=== PATIENT | female | born 1960 | race Caucasian/White ===

== ENCOUNTER 2017-05-07 18:20 | Inpatient (IN) | payer MEDICARE ==
[2017-05-07 19:35] LABS: Bilirubin Negative (Negative); Blood, Urine Negative (Negative); Clarity CLEAR (Clear); Glucose, Urine (Dipstick) >=1000 mg/dL (Negative); Leukocyte Negative (Negative); Nitrite Negative (Negative); Protein, Urine (Dipstick) Negative (Neg-Trace); Specific Gravity, Urine 1.036 (1.002-1.036); Urobilinogen 0.2 mg/dL (0.2-1.0)
[2017-05-07 19:42] LABS: Bicarbonate (HCO3v) 18.7 mmol/L (1.0-85.0); CO2 Tension (PvCO2) 37.8 mmHg (41.0-51.0); Calcium, Ionized 1.08 mmol/L (1.12-1.32); Hemoglobin - Calc 16.7 g/dL (12.0-18.0); O2 Tension (PvO2) 32.9 mmHg (35.0-45.0); T. Carbon Dioxide 19.9 mmol/L (1.0-85.0); pH (Venous) 7.302 (7.35-7.45); vO2 Saturation-calc 57.6 % (0.0-100.0)
--- NOTE | 2017-05-07 19:47 | RAD ---
PORTABLE UPRIGHT FRONTAL CHEST RADIOGRAPH 05/07/17 COMPARISON: 12/27/14 HISTORY: Increased dizziness, altered mental status. FINDINGS: Clips are noted in the right upper quadrant. There is no pneumothorax, pleural fluid, focal consolida tion, or alveolar edema. IMPRESSION: No acute findings. POS: [facility]
[2017-05-07 19:52] LABS: Hemoglobin 15.3 g/dL (12.0-16.0); Mean Corpuscular HGB CONC 33.3 g/dL (32.0-36.0); Mean Corpuscular Hemoglobin 34.7 pg (27.0-31.0); Platelet Count 262 thou/uL (130-400); RBC Distribution Width 12.1 % (11.5-14.5); White Blood Cell (WBC) Count 5.9 thou/uL (4.8-10.8)
[2017-05-07 19:54] LABS: #Lymphocytes 1.6 thou/uL (1.20-3.40); #Monocytes 0.4 thou/uL (0.11-0.59); #Neutrophils 3.6 thou/uL (1.40-6.50); %Basophils 0.7 % (0.0-1.0); %Eosinophils 0.5 % (0.0-10.0); %Lymphocytes 28.2 % (21.0-51.0); %Monocytes 7.1 % (0.0-10.0); %Neutrophils 63.5 % (42.0-75.0)
[2017-05-07 20:00] LABS: ALT (SGPT) 72 U/L (8-55); AST (SGOT) 46 U/L (5-34); Albumin 4.5 g/dL (3.5-5.0); Alkaline Phosphatase 166 U/L (40-150); Anion Gap 20 mmol/L (10-20); BUN (Urea Nitrogen) 14 mg/dL (9.8-20.1); Bilirubin, Total 0.3 mg/dL (0.2-1.2); CK (CPK) 31 U/L (29-168); Calc. Creatinine Clearance 0 mL/min (70-130); Calcium 9.5 mg/dL (7.8-10.44); Carbon Dioxide 17 mmol/L (22-29); Chloride 97 mmol/L (98-107); Estimated GFR-MDRD 46; Globulin 3.2 g/dL (2.4-3.5); Magnesium 2.1 mg/dL (1.6-2.6); Protein, Total 7.7 g/dL (6.0-8.3); Sodium 130 mmol/L (136-145)
[2017-05-07 20:04] LABS: Glucose 557 mg/dL (70-105)
[2017-05-07 20:05] LABS: CKMB 1.5 ng/mL (0-6.6); Troponin I Less than 0.010 ng/mL (< 0.028)
[2017-05-07] MEDS ORDERED: Meclizine HCl 25 MG TAB ONE (20:22)
--- NOTE | 2017-05-07 20:28 | CT ---
HEAD CT WITHOUT CONTRAST 05/07/17 COMPARISON: 01/14/17 HISTORY: Altered mental status. TECHNIQUE: Serial axial CT imaging at 5 mm intervals from vertex through skull base without contrast. FINDINGS: Imaged paranasal sinuses/mastoid air cells are well aerated. There is no displaced calvarial fracture . There is distal right vertebral artery atherosclerotic calcification. There is no intracranial hemo rrhage, midline shift, mass effect or ventricular enlargement. IMPRESSION: No intracranial hemorrhage. POS: [facility]
[2017-05-07] MEDS ORDERED: Insulin Regular 300 UNITS/3 ML VIAL ONE ×2 (20:56→21:20)
[2017-05-07] MEDS ORDERED: Insulin Regular 100 units/100 ml in NS IVPB SCH (21:15)
[2017-05-07 23:29] VITALS: BMI 24.8
[2017-05-08 00:01] LABS: Anion Gap 9 mmol/L (10-20); BUN (Urea Nitrogen) 11 mg/dL (9.8-20.1); Calc. Creatinine Clearance 70 mL/min (70-130); Calcium 8.3 mg/dL (7.8-10.44); Carbon Dioxide 24 mmol/L (22-29); Chloride 104 mmol/L (98-107); Estimated GFR-MDRD 71; Glucose 393 mg/dL (70-105); Potassium 3.4 mmol/L (3.5-5.1); Sodium 134 mmol/L (136-145)
[2017-05-08] MEDS ORDERED: NS 0.9% w/ 20 MEQ KCL 1,000 ML IV PRN ×2 (00:01)
[2017-05-08] MEDS ORDERED: hydrALAZINE 20 MG/ML VIAL SLOW IVP PRN (00:01)
[2017-05-08] MEDS ORDERED: Acetaminophen 325 MG TAB PO PRN (00:01)
[2017-05-08] MEDS ORDERED: Dextrose 5 %-0.45 % NaCl 1,000 ML IV PRN (00:01)
[2017-05-08] MEDS ORDERED: D5 1/2 NS w/20 mEq KCL 1,000 ML IV PRN (00:01)
[2017-05-08] MEDS ORDERED: CCU Electrolyte Replacement 1 EACH IVPB SCH (00:01)
[2017-05-08] MEDS ORDERED: Sodium Chloride 0.9% 1,000 ML IV PRN ×4 (00:01)
[2017-05-08] MEDS ORDERED: Mag-Al 1200 mg/1200 mg/30 ML UDCUP PO PRN (00:01)
[2017-05-08] MEDS ORDERED: Magnesium Oxide 400 MG TAB PO PRN ×2 (00:13)
[2017-05-08] MEDS ORDERED: CCU ELECTROLYTE REPLACEMENT PROTOCOL FS PRN (00:13)
[2017-05-08] MEDS ORDERED: Potassium Phosphate 12 MMOL in Sodium Chloride 0.9% 250 ML 250 ML IV PRN (00:13)
[2017-05-08] MEDS ORDERED: Potassium Phosphate 9 MMOL in Sodium Chloride 0.9% 100 ML IVPB PRN (00:13)
[2017-05-08] MEDS ORDERED: Potassium Chloride 20 MEQ TAB PO PRN (00:13)
[2017-05-08] MEDS ORDERED: Potassium Chloride 40 MEQ in Sodium Chloride 0.9% 250 ML 250 ML IVPB PRN (00:13)
[2017-05-08] MEDS ORDERED: Magnesium 2 GM/NS 0.9% 100 ML 2 GM in Premix Bag 1 BAG IVPB PRN (00:13)
[2017-05-08] MEDS ORDERED: Potassium Chloride 40 MEQ in Premix Bag 1 BAG IVPB PRN (00:13)
[2017-05-08] MEDS ORDERED: Potassium Phosphate 15 MMOL in Sodium Chloride 0.9% 250 ML 250 ML IV PRN (00:13)
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
[2017-05-08] MEDS ORDERED: ALPRAZolam 0.5 MG TAB PO SCH (01:00)
[2017-05-08] MEDS ORDERED: Zolpidem Tartrate 5 MG TAB PO SCH (01:00)
[2017-05-08 01:06] LABS: Anion Gap 7 mmol/L (10-20); BUN (Urea Nitrogen) 10 mg/dL (9.8-20.1); Calc. Creatinine Clearance 76 mL/min (70-130); Calcium 8.2 mg/dL (7.8-10.44); Carbon Dioxide 26 mmol/L (22-29); Chloride 105 mmol/L (98-107); Estimated GFR-MDRD 77; Glucose 330 mg/dL (70-105); Potassium 3.2 mmol/L (3.5-5.1); Sodium 135 mmol/L (136-145)
[2017-05-08] MEDS ORDERED: Fiorinal 325/50/40 mg Tablet PO PRN (01:59)
[2017-05-08 04:51] LABS: Free T4 (Free Thyroxine) 0.94 ng/dL (0.70-1.48); Thyroid Stimulating Hormone 1.8288 uIU/mL (0.35-4.94)
[2017-05-08 05:04] LABS: Anion Gap 7 mmol/L (10-20); BUN (Urea Nitrogen) 11 mg/dL (9.8-20.1); Calc. Creatinine Clearance 89 mL/min (70-130); Calcium 8.1 mg/dL (7.8-10.44); Carbon Dioxide 24 mmol/L (22-29); Chloride 109 mmol/L (98-107); Estimated GFR-MDRD Greater than 90; Glucose 176 mg/dL (70-105); Potassium 3.2 mmol/L (3.5-5.1); Sodium 137 mmol/L (136-145)
[2017-05-08] MEDS: Levothyroxine Sodium 100 MCG TAB PO SCH (05:37)
[2017-05-08] MEDS: ALPRAZolam 0.5 MG TAB PO SCH ×3 (08:28→23:03)
[2017-05-08] MEDS: Aspirin 81 mg Enteric Coated Tablet PO SCH (08:29)
[2017-05-08] MEDS: Gabapentin 300 MG CAP PO SCH ×3 (08:29→21:46)
[2017-05-08] MEDS: busPIRone HCl 5 MG TAB PO SCH ×2 (08:29→21:47)
[2017-05-08] MEDS: lamoTRIgine 100 MG TAB PO SCH (08:29)
[2017-05-08] MEDS: Enoxaparin Sodium 30 MG/0.3 ML SYRINGE SC SCH (08:30)
[2017-05-08] MEDS: Atorvastatin Calcium 40 MG TAB PO SCH (08:30)
[2017-05-08] MEDS: Famotidine 20 MG TAB PO SCH ×2 (08:30→21:47)
[2017-05-08] MEDS: DULoxetine 60 MG CAP PO SCH (08:30)
[2017-05-08 09:05] LABS: Anion Gap 7 mmol/L (10-20); BUN (Urea Nitrogen) 10 mg/dL (9.8-20.1); Calc. Creatinine Clearance 106 mL/min (70-130); Calcium 8.2 mg/dL (7.8-10.44); Carbon Dioxide 24 mmol/L (22-29); Chloride 109 mmol/L (98-107); Estimated GFR-MDRD Greater than 90; Glucose 118 mg/dL (70-105); Potassium 3.6 mmol/L (3.5-5.1); Sodium 136 mmol/L (136-145)
[2017-05-08] MEDS ORDERED: Ketorolac Tromethamine 30 MG/ML VIAL IVP SCH (09:30)
--- NOTE | 2017-05-08 13:52 | PDOC.PN ---
- Subjective Encounter Start Date: 05/08/17 Encounter Start Time: 13:40 Subjective: f/u for DKA on protocol and insulin gtt. Gap has closed and pt tolerating -: po intake. Pt unreliable historian due to TBI with long/short-term memory -: loss. c/o RUIZ tx with Toradol. - Objective Resuscitation Status: Resuscitation Status FULL:Full Resuscitation MAR Reviewed: Yes Vital Signs & Weight: Vital Signs (12 hours) Temp Pulse Resp BP Pulse Ox 05/08/17 12:00 97.2 F L 79 15 114/74 97 05/08/17 08:00 97.8 F 87 16 98 05/08/17 07:25 97.8 F 87 16 101/64 99 05/08/17 04:00 97.6 F 78 18 86/57 L 97 05/08/17 03:55 72 18 112/62 92 L I&O: 05/07/17 05/08/17 05/09/17 06:59 06:59 06:59 Intake Total 3440 Output Total 800 Balance 2640 Result Diagrams: 05/07/17 19:37 05/08/17 07:45 Additional Labs: Accuchecks 05/08/17 05/08/17 05/08/17 11:35 10:05 09:13 POC Glucose 187 H 191 H 191 H 05/08/17 05/08/17 05/08/17 08:13 07:00 06:09 POC Glucose 139 H 133 H 160 H 05/08/17 05/08/17 05/08/17 05:14 04:09 03:22 POC Glucose 156 H 154 H 175 H 05/08/17 05/08/17 05/08/17 02:23 01:09 00:14 POC Glucose 176 H 284 H 315 H 05/07/17 05/07/17 23:12 22:25 POC Glucose 411 H 371 H Laboratory Tests 04/02/16 04/10/16 04/10/16 10:10 06:22 14:16 Sodium Hemoglobin A1c 14.6 H Phosphorus Magnesium Free T4 TSH 3rd Generation Urine Ketones B-Hydroxybutyrate 2.72 H 0.40 H 04/11/16 04/11/16 05/07/17 02:04 05:33 19:37 Sodium 130 L Hemoglobin A1c Phosphorus Magnesium 2.1 Free T4 TSH 3rd Generation Urine Ketones Negative B-Hydroxybutyrate 0.18 05/07/17 05/07/17 05/08/17 19:37 23:28 00:21 Sodium 134 L 135 L Hemoglobin A1c Phosphorus Magnesium Free T4 TSH 3rd Generation Urine Ketones B-Hydroxybutyrate 4.09 H 05/08/17 05/08/17 03:20 03:20 Sodium Hemoglobin A1c Phosphorus 1.6 L Magnesium Free T4 0.94 TSH 3rd Generation 1.8288 Urine Ketones B-Hydroxybutyrate Radiology Reviewed by me: Yes (PCXR - neg; CT Brain - neg) EKG Reviewed by me: Yes (Tele - SR) Phys Exam - Physical Examination Constitutional: NAD HEENT: PERRLA, oral pharynx no lesions Neck: no JVD, supple Respiratory: no wheezing, clear to auscultation bilateral Cardiovascular: RRR Gastrointestinal: soft, non-tender, no distention, positive bowel sounds Musculoskeletal: no edema, pulses present Neurological: normal sensation, moves all 4 limbs Skin: normal turgor, cap refill <2 seconds Dx/Plan (1) DKA (diabetic ketoacidoses) Code(s): E13.10 - OTH DIABETES MELLITUS WITH KETOACIDOSIS WITHOUT COMA Status : Resolved Comment: Resolving, saline lock IVF, start Levemir 15u sc BID, ISS (2) Dehydration Code(s): E86.0 - DEHYDRATION Status: Acute Comment: Resolving (3) Hyponatremia Code(s): E87.1 - HYPO-OSMOLALITY AND HYPONATREMIA Status: Acute Comment: Secondary to hyperglycemia (4) Hypophosphatemia Code(s): E83.39 - OTHER DISORDERS OF PHOSPHORUS METABOLISM Status: Acute Comment: Mild, KPhos TID (5) Bipolar disorder Code(s): F31.9 - BIPOLAR DISORDER, UNSPECIFIED Status: Chronic Comment: Continue Lamictal and Buspar (6) Diabetes type 2, uncontrolled Code(s): E11.65 - TYPE 2 DIABETES MELLITUS WITH HYPERGLYCEMIA Status: Chronic Comment: A1c 16.6 on 12/30, start Levemir 15u sc BID, ISS - Plan pediatric social worker, speech therapy, out of bed/ambulate, DVT proph w/SCDs Stable currently -: D/C Insulin gtt -: Toradol 30mg IV q6h -: PT for functional assessment -: AM lab: BMP, PO3 * .
[2017-05-08] MEDS: Ketorolac Tromethamine 30 MG/ML VIAL IVP SCH ×2 (15:02→21:45)
[2017-05-08] MEDS ORDERED: Dextrose 5% in Water 1,000 ML IV PRN ×2 (17:49→21:21)
[2017-05-08] MEDS ORDERED: Dextrose 50% Abboject 50 ML SYRINGE IVP PRN (17:49)
[2017-05-08] MEDS ORDERED: Insulin Detemir 100 UNITS/ML 15 UNITS in Pre-Filled Syringe 1 EACH SC SCH (18:00)
[2017-05-08] MEDS: K-Phos Neutral 250 MG TAB PO SCH (18:43)
[2017-05-08] MEDS: Insulin Regular 300 UNITS/3 ML VIAL SC PRN ×2 (18:44→21:44)
[2017-05-08] MEDS: Amitriptyline HCl 25 MG TAB PO SCH (21:47)
[2017-05-08] MEDS: Zolpidem Tartrate 5 MG TAB PO SCH (23:03)
[2017-05-09] MEDS: Insulin Regular 300 UNITS/3 ML VIAL SC PRN ×5 (03:10→20:43)
[2017-05-09 04:32] LABS: Hemoglobin A1c 15.2 % (4.0-6.0)
[2017-05-09 04:36] LABS: Anion Gap 8 mmol/L (10-20); BUN (Urea Nitrogen) 13 mg/dL (9.8-20.1); Calc. Creatinine Clearance 85 mL/min (70-130); Calcium 8.6 mg/dL (7.8-10.44); Carbon Dioxide 25 mmol/L (22-29); Chloride 107 mmol/L (98-107); Estimated GFR-MDRD 88; Glucose 352 mg/dL (70-105); Phosphorus 3.6 mg/dL (2.3-4.7); Potassium 3.8 mmol/L (3.5-5.1); Sodium 136 mmol/L (136-145)
[2017-05-09] MEDS: Ketorolac Tromethamine 30 MG/ML VIAL IVP SCH ×4 (07:17→20:55)
[2017-05-09] MEDS: Levothyroxine Sodium 100 MCG TAB PO SCH (07:18)
[2017-05-09] MEDS: K-Phos Neutral 250 MG TAB PO SCH ×2 (08:25→11:48)
[2017-05-09] MEDS: Famotidine 20 MG TAB PO SCH ×2 (08:25→20:42)
[2017-05-09] MEDS: Aspirin 81 mg Enteric Coated Tablet PO SCH (08:26)
[2017-05-09] MEDS: lamoTRIgine 100 MG TAB PO SCH (08:26)
[2017-05-09] MEDS: Atorvastatin Calcium 40 MG TAB PO SCH (08:26)
[2017-05-09] MEDS: Gabapentin 300 MG CAP PO SCH ×3 (08:26→20:42)
[2017-05-09] MEDS: DULoxetine 60 MG CAP PO SCH (08:26)
[2017-05-09] MEDS: busPIRone HCl 5 MG TAB PO SCH ×2 (08:26→20:42)
[2017-05-09] MEDS: Enoxaparin Sodium 30 MG/0.3 ML SYRINGE SC SCH (08:27)
[2017-05-09] MEDS: ALPRAZolam 0.5 MG TAB PO SCH ×3 (08:28→20:59)
[2017-05-09] MEDS ORDERED: Insulin Detemir 100 UNITS/ML 15 UNITS in Pre-Filled Syringe 1 EACH SC SCH (09:00)
--- NOTE | 2017-05-09 16:40 | PDOC.PN ---
- Subjective Encounter Start Date: 05/09/17 Encounter Start Time: 16:30 Subjective: f/u DKA currently resolved. Tolerating po intake. RUIZ improved. Still -: has significant memory loss secondary to hx of TBI. - Objective Resuscitation Status: Resuscitation Status FULL:Full Resuscitation MAR Reviewed: Yes Vital Signs & Weight: Vital Signs (12 hours) Temp Pulse Resp BP Pulse Ox 05/09/17 15:15 99.6 F 94 22 H 121/61 94 L 05/09/17 11:16 98.0 F 72 18 115/62 98 05/09/17 08:00 97.8 F 78 9 L 97 05/09/17 07:13 97.8 F 78 9 L 90/66 95 Weight Weight 136 lb 11.2 oz I&O: 05/08/17 05/09/17 05/10/17 06:59 06:59 06:59 Intake Total 3440 1010 Output Total 800 400 700 Balance 2640 610 -700 Result Diagrams: 05/07/17 19:37 05/09/17 03:46 Additional Labs: Accuchecks 05/09/17 05/09/17 05/09/17 16:23 10:33 06:12 POC Glucose 231 H 298 H 206 H 05/09/17 05/08/17 05/08/17 03:07 21:14 19:46 POC Glucose 323 H 424 H 461 H 05/08/17 16:36 POC Glucose 321 H Laboratory Tests 05/03/15 04/02/16 04/10/16 10:56 10:10 06:22 Sodium Hemoglobin A1c 13.7 H 14.6 H Phosphorus Magnesium Free T4 TSH 3rd Generation Urine Ketones B-Hydroxybutyrate 2.72 H 04/10/16 04/11/16 04/11/16 14:16 02:04 05:33 Sodium Hemoglobin A1c Phosphorus Magnesium Free T4 TSH 3rd Generation Urine Ketones Negative B-Hydroxybutyrate 0.40 H 0.18 01/09/17 05/07/17 05/07/17 09:13 19:37 19:37 Sodium 130 L Hemoglobin A1c 16.6 H Phosphorus Magnesium 2.1 Free T4 TSH 3rd Generation Urine Ketones B-Hydroxybutyrate 4.09 H 05/07/17 05/08/17 05/08/17 23:28 00:21 03:20 Sodium 134 L 135 L Hemoglobin A1c Phosphorus 1.6 L Magnesium Free T4 TSH 3rd Generation Urine Ketones B-Hydroxybutyrate 05/08/17 05/09/17 05/09/17 03:20 03:46 03:46 Sodium Hemoglobin A1c 15.2 H Phosphorus 3.6 Magnesium Free T4 0.94 TSH 3rd Generation 1.8288 Urine Ketones B-Hydroxybutyrate EKG Reviewed by me: Yes (Tele - SR) Phys Exam - Physical Examination Constitutional: NAD HEENT: PERRLA, oral pharynx no lesions Neck: no JVD, supple Respiratory: no wheezing, clear to auscultation bilateral Cardiovascular: RRR Gastrointestinal: soft, non-tender, no distention, positive bowel sounds Musculoskeletal: no edema, pulses present Neurological: normal sensation, moves all 4 limbs Skin: normal turgor, cap refill <2 seconds Dx/Plan (1) DKA (diabetic ketoacidoses) Code(s): E13.10 - OT DIABETES MELLITUS WITH KETOACIDOSIS WITHOUT COMA Status : Acute Comment: Resolving, saline lock IVF, change Levemir 20u sc BID, ISS (2) Dehydration Code(s): E86.0 - DEHYDRATION Status: Acute Comment: Resolving (3) Hyponatremia Code(s): E87.1 - HYPO-OSMOLALITY AND HYPONATREMIA Status: Acute Comment: Secondary to hyperglycemia (4) Hypophosphatemia Code(s): E83.39 - OTHER DISORDERS OF PHOSPHORUS METABOLISM Status: Acute Comment: Resolving, d/c KPhos (5) Bipolar disorder Code(s): F31.9 - BIPOLAR DISORDER, UNSPECIFIED Status: Chronic Comment: Continue Lamictal and Buspar (6) Diabetes type 2, uncontrolled Code(s): E11.65 - TYPE 2 DIABETES MELLITUS WITH HYPERGLYCEMIA Status: Chronic Comment: A1c 16.6 on 12/30, start Levemir 15u sc BID, ISS - Plan PT/OT, social media editor, out of bed/ambulate, DVT proph w/SCDs Stable overall -: Increase Levemir 20u sc BID -: Trial of Meclizine 25mg TID for vertigo -: CM consult for dispo planning, unsafe to be at home alone -: Transfer to Medical floor * .
[2017-05-09] MEDS ORDERED: Insulin Detemir 100 UNITS/ML 20 UNITS in Pre-Filled Syringe 1 EACH SC SCH (16:45)
--- NOTE | 2017-05-09 17:05 | EKG ---
Test Reason : DIZZINESS Blood Pressure : / mmHG Vent. Rate : 096 BPM Atrial Rate : 096 BPM P-R Int : 142 ms QRS Dur : 088 ms QT Int : 380 ms P-R-T Axes : 040 -45 030 degrees QTc Int : 480 ms Normal sinus rhythm Left axis deviation Inferior infarct , age undetermined Possible Anterolateral infarct , age undetermined Abnormal ECG Confirmed by SARITHA CELESTIN D.O. ([id number]), online content editor NAEL HANLEY ([id number]) on 05/09/2017 5:04:41 PM Referred By: LEVON Jeff Confirmed By:SARITHA CELESTIN D.O.
[2017-05-09] MEDS: Meclizine HCl 25 MG TAB PO SCH (18:02)
[2017-05-09] MEDS: Insulin Detemir 100 UNITS/ML 20 UNITS in Pre-Filled Syringe 1 EACH SC SCH (20:41)
[2017-05-09] MEDS: Amitriptyline HCl 25 MG TAB PO SCH (20:42)
[2017-05-09] MEDS: Zolpidem Tartrate 5 MG TAB PO SCH (23:12)
[2017-05-10] MEDS: ALPRAZolam 0.5 MG TAB PO SCH ×4 (00:07→20:16)
[2017-05-10] MEDS: Insulin Regular 300 UNITS/3 ML VIAL SC PRN ×5 (02:31→20:20)
[2017-05-10] MEDS: Meclizine HCl 25 MG TAB PO SCH ×3 (02:31→17:02)
[2017-05-10 05:21] LABS: Anion Gap 10 mmol/L (10-20); BUN (Urea Nitrogen) 12 mg/dL (9.8-20.1); Calc. Creatinine Clearance 91 mL/min (70-130); Carbon Dioxide 24 mmol/L (22-29); Chloride 108 mmol/L (98-107); Potassium 3.8 mmol/L (3.5-5.1); Sodium 138 mmol/L (136-145)
[2017-05-10 05:22] LABS: Calcium 8.6 mg/dL (7.8-10.44); Estimated GFR-MDRD Greater than 90; Glucose 219 mg/dL (70-105)
[2017-05-10] MEDS: Levothyroxine Sodium 100 MCG TAB PO SCH (05:47)
[2017-05-10] MEDS: Ketorolac Tromethamine 30 MG/ML VIAL IVP SCH ×4 (05:47→21:01)
[2017-05-10] MEDS: Aspirin 81 mg Enteric Coated Tablet PO SCH (08:31)
[2017-05-10] MEDS: Atorvastatin Calcium 40 MG TAB PO SCH (08:31)
[2017-05-10] MEDS: DULoxetine 60 MG CAP PO SCH (08:31)
[2017-05-10] MEDS: busPIRone HCl 5 MG TAB PO SCH ×2 (08:31→20:16)
[2017-05-10] MEDS: Famotidine 20 MG TAB PO SCH ×2 (08:31→20:15)
[2017-05-10] MEDS: Gabapentin 300 MG CAP PO SCH ×3 (08:31→20:14)
[2017-05-10] MEDS: lamoTRIgine 100 MG TAB PO SCH (08:32)
[2017-05-10] MEDS: Insulin Detemir 100 UNITS/ML 20 UNITS in Pre-Filled Syringe 1 EACH SC SCH (08:40)
[2017-05-10] MEDS ORDERED: Insulin Detemir 100 UNITS/ML 20 UNITS in Pre-Filled Syringe 1 EACH SC SCH (09:00)
--- NOTE | 2017-05-10 12:53 | PDOC.PN ---
- Subjective Encounter Start Date: 05/10/17 Encounter Start Time: 12:50 Subjective: f/u DM II and s/p DKA. Overall feeling better and appetite good. Ambulated -: with less dizziness. - Objective Resuscitation Status: Resuscitation Status FULL:Full Resuscitation MAR Reviewed: Yes Vital Signs & Weight: Vital Signs (12 hours) Temp Pulse Resp BP Pulse Ox 05/10/17 11:56 98.5 F 87 16 119/80 93 L 05/10/17 08:00 98.2 F 86 16 05/10/17 07:18 98.2 F 86 16 101/64 93 L 05/10/17 04:00 98.2 F 81 20 98/64 92 L Weight Weight 136 lb 11.2 oz I&O: 05/09/17 05/10/17 05/11/17 06:59 06:59 06:59 Intake Total 1010 1400 Output Total 400 700 Balance 610 700 Result Diagrams: 05/07/17 19:37 05/10/17 04:52 Additional Labs: Accuchecks 05/10/17 05/10/17 05/10/17 11:24 04:59 02:06 POC Glucose 224 H 182 H 290 H 05/09/17 05/09/17 20:36 16:23 POC Glucose 420 H 231 H Phys Exam - Physical Examination Constitutional: NAD HEENT: PERRLA, oral pharynx no lesions Neck: no JVD, supple Respiratory: no wheezing, clear to auscultation bilateral Cardiovascular: RRR Gastrointestinal: soft, non-tender, no distention, positive bowel sounds Musculoskeletal: no edema, pulses present Neurological: normal sensation, moves all 4 limbs Psychiatric: A&O x 3 Skin: normal turgor, cap refill <2 seconds Dx/Plan (1) DKA (diabetic ketoacidoses) Code(s): E13.10 - OTH DIABETES MELLITUS WITH KETOACIDOSIS WITHOUT COMA Status : Acute Comment: Resolving, saline lock IVF, change Levemir 25u sc BID, ISS (2) Dehydration Code(s): E86.0 - DEHYDRATION Status: Acute Comment: Resolving (3) Hyponatremia Code(s): E87.1 - HYPO-OSMOLALITY AND HYPONATREMIA Status: Acute Comment: Secondary to hyperglycemia (4) Hypophosphatemia Code(s): E83.39 - OTHER DISORDERS OF PHOSPHORUS METABOLISM Status: Acute Comment: Resolving, d/c hos (5) Bipolar disorder Code(s): F31.9 - BIPOLAR DISORDER, UNSPECIFIED Status: Chronic Comment: Continue Maximiliano and Gael (6) Diabetes type 2, uncontrolled Code(s): E11.65 - TYPE 2 DIABETES MELLITUS WITH HYPERGLYCEMIA Status: Chronic Comment: A1c 16.6 on 12/30, continue Levemir 25u sc BID, ISS, dietitian consult - Plan PT/OT, social contact worker, out of bed/ambulate, DVT proph w/SCDs Stable overall -: Change Levemir 25u sc BID -: Dietitian consult -: OOB/ambulate -: CM consult for dispo planning * ? Home health on d/c * Likely home 05/11/17
[2017-05-10 19:26] VITALS: BP 112/74
[2017-05-10] MEDS: Amitriptyline HCl 25 MG TAB PO SCH (20:16)
[2017-05-10] MEDS: Zolpidem Tartrate 5 MG TAB PO SCH (20:16)
[2017-05-10] MEDS: Insulin Detemir 100 UNITS/ML 25 UNITS in Pre-Filled Syringe 1 EACH SC SCH (20:48)
[2017-05-11] MEDS: Meclizine HCl 25 MG TAB PO SCH ×2 (02:09→09:31)
[2017-05-11] MEDS: Ketorolac Tromethamine 30 MG/ML VIAL IVP SCH ×3 (04:45→15:32)
[2017-05-11] MEDS: Levothyroxine Sodium 100 MCG TAB PO SCH (05:06)
[2017-05-11 05:30] LABS: Anion Gap 8 mmol/L (10-20); BUN (Urea Nitrogen) 11 mg/dL (9.8-20.1); Calc. Creatinine Clearance 89 mL/min (70-130); Calcium 8.8 mg/dL (7.8-10.44); Carbon Dioxide 29 mmol/L (22-29); Chloride 105 mmol/L (98-107); Estimated GFR-MDRD 89; Glucose 241 mg/dL (70-105); Potassium 4.3 mmol/L (3.5-5.1); Sodium 138 mmol/L (136-145)
[2017-05-11] MEDS: Insulin Regular 300 UNITS/3 ML VIAL SC PRN ×2 (06:01→11:13)
[2017-05-11] MEDS: Gabapentin 300 MG CAP PO SCH ×2 (09:30→15:03)
[2017-05-11] MEDS: DULoxetine 60 MG CAP PO SCH (09:30)
[2017-05-11] MEDS: ALPRAZolam 0.5 MG TAB PO SCH ×2 (09:31→15:02)
[2017-05-11] MEDS: busPIRone HCl 5 MG TAB PO SCH (09:31)
[2017-05-11] MEDS: Atorvastatin Calcium 40 MG TAB PO SCH (09:31)
[2017-05-11] MEDS: Aspirin 81 mg Enteric Coated Tablet PO SCH (09:31)
[2017-05-11] MEDS: lamoTRIgine 100 MG TAB PO SCH (09:31)
[2017-05-11] MEDS: Famotidine 20 MG TAB PO SCH (09:32)
[2017-05-11] MEDS: Insulin Detemir 100 UNITS/ML 25 UNITS in Pre-Filled Syringe 1 EACH SC SCH (09:38)
[2017-05-11 12:24] VITALS: TEMP 97.9
--- NOTE | 2017-05-11 12:50 | DIS ---
DATE OF ADMISSION: 05/07/2017 DATE OF DISCHARGE: 05/11/2017 DISCHARGE DIAGNOSES: 1. Diabetic ketoacidosis, resolved. 2. Dehydration secondary to #1, resolved. 3. Hyponatremia secondary to hyperglycemia, improved. 4. Hypophosphatasemia, resolved. 5. Diabetes mellitus, type 2, uncontrolled. 6. Status post traumatic brain injury with memory loss. 7. Obsessive compulsive disorder. 8. Tension headache, improved. CONSULTATIONS: None. PERTINENT LABORATORY AND X-RAY FINDINGS: Hemoglobin A1c of 15.2, TSH 1.83, free T4 0.94, AST 46, ALT 72, alkaline phosphatase 166. CBC within normal limits. Beta hydroxybutyrate level, 05/07/2017, 4. 09. Portable chest x-ray dated 05/07/2017 showed no acute cardiopulmonary process. CT of the brain without contrast dated 05/07/2017 showed no acute intracranial process. HOSPITAL COURSE: Patient was initially admitted to the critical care unit with diabetic ketoacidosis with dehydration and multiple metabolic derangements. The patient received intravenous normal salin e as well as DKA protocol on insulin infusion with overall improvement in glucose trend. Hemoglobin A1c showed essentially uncontrolled diabetes mellitus, type 2, with a level of 15.2. The patient was initiated on subcutaneous Levemir, titrated to current level of 25 units b.i.d. The patient was cierra luated by the dietitian service and given general education and reinforcement on dietary measures for home. The patient was also evaluated by the case management service with recommendations for home [facility] services for closer surveillance and monitoring and assistance with diabetic care. The patient received general supportive measures and overall remained clinically stable, transitioning to the [facility] floor for further evaluation. The patient was noted ambulatory without assistance or difficult y in tolerating regular oral intake. The patient overall remained clinically stable, achieving basel ine functional status and ready for discharge on 05/11/2017. DISCHARGE MEDICATIONS: 1. Levemir 25 units subcutaneously b.i.d. 2. Alprazolam 2 mg p.o. t.i.d. 3. Elavil 50 mg p.o. at bedtime. 4. Enteric-coated aspirin 81 mg 1 tab p.o. daily. 5. Lipitor 40 mg p.o. daily. 6. BuSpar 15 mg p.o. b.i.d. 7. Cymbalta 60 mg p.o. daily. 8. Gabapentin 600 mg p.o. t.i.d. 9. Lamotrigine 100 mg p.o. daily. 10. Levothyroxine 100 mcg p.o. daily. 11. Ambien 10 mg p.o. at bedtime p.r.n. FOLLOWUP: Patient may follow up with her primary care provider, Dr. Bethel Rosales, within 7 days of d ischarge. CONDITION ON DISCHARGE: Fair. ACTIVITY: Ad kenney. DIET: ADA. SPECIAL INSTRUCTIONS: Home health services including diabetic education and monitoring for discharge . CODE STATUS: FULL. DISPOSITION: Home with home health services, 05/11/2017. Total time preparing and coordinating discharge is 33 minutes.
== END 2017-05-11 17:00 | disposition home health service (06) | DRG 638 ==
LOC: ERS 18:20 → IMCU/EMU 22:10 → T4-B 05-09 20:11
PROVIDERS: ADMIT Internal Medicine; ATTEND Internal Medicine
DX: E11.10 Type 2 diabetes mellitus with ketoacidosis without coma (principal); E87.1 Hypo-osmolality and hyponatremia; E83.39 Other disorders of phosphorus metabolism; F06.8 Other specified mental disorders due to known physiological condition; S06.9X0S Unspecified intracranial injury without loss of consciousness, sequela; E86.0 Dehydration; Z79.4 Long term (current) use of insulin; F42.9 Obsessive-compulsive disorder, unspecified; G44.209 Tension-type headache, unspecified, not intractable; F31.9 Bipolar disorder, unspecified
CPT/HCPCS: 36415; 36416; 70450; 71045; 80048; 80053; 81003; 82010; 82330; 82550; 82553; 82803; 83036; 83735; 84100; 84439; 84443; 84484; 85025; 93005; 96361; 96365; 96374; A4216; G8978-GP-CJ; G8979-GP-CI; J1815; J1885; J7050